=== PATIENT | male | born 1950 | race Caucasian/White ===

== ENCOUNTER → 2017-01-07 | Outpatient (CLI) | payer MEDICARE | END | disposition home or self-care (01) | LOC: CPPFTMAIN 14:23 | PROVIDERS: ATTEND Internal Medicine | DX: J45.909 Unspecified asthma, uncomplicated (principal) | CPT/HCPCS: 94060; 94726; 94729 ==

== ENCOUNTER 2017-03-05 08:47 | Day surgery (SDC) | payer MEDICARE ==
[2017-03-03 11:29] VITALS: BMI 27.2
[~2017-03-05 08:47] MED LIST: LACTATED RINGERS 1,000 ML IV SCH; LIDOCAINE 1% 20 ML VIAL (10MG/ML) FOR IV START INTRADERMA PRN
[2017-03-05 09:32] VITALS: TEMP 97.3
[2017-03-05] MEDS ORDERED: PROPOFOL 10 MG/ML 20 ML VIAL IV ONE (10:18)
[2017-03-05 10:51] VITALS: RESP 18
--- NOTE | 2017-03-05 10:51 | P.PCN ---
Date of Procedure: 03/05/17 Preoperative Diagnosis: Postoperative Diagnosis: Procedure(s) Performed: Procedure: Total colonoscopy. Preoperative diagnosis: Screening for neoplasia, patient has history of polyps. Postoperative diagnosis: Sigmoid diverticulosis with no evidence of acute diverticulitis, strictures, polyps or cancer. Preparation: HalfLytely prep. Sedation: Was provided by anesthesia. Brief clinical history: The patient is a 66-year-old male who is scheduled for this evaluation for screening for neoplasia because of history of polyps. He has no abdominal complaints, bleeding or anemia. His last colonoscopy was in September 2011. Procedure: With the patient on his left lateral decubitus position and after informed consent and adequate sedation, the perianal area was inspected and it did not show any fissures or fistulas. There were no masses felt on digital rectal examination. The Olympus CFQ 160L was then inserted in the rectum in the usual fashion and advanced to the cecum. The preparation was less than than ideal on the right side. The mucosa appeared healthy. No polyps or tumors were seen. Several diverticular orifices were seen scattered in the sigmoid with no evidence of acute diverticulitis or strictures. I retroflexed the endoscope in the rectum before the endoscope was withdrawn. The patient tolerated the procedure well. Plan: The patient was reassured. Discussed dietary measures. With his less than ideal preparation today, I am recommending repeat exam in 3 years. He will follow up with you as planned. Implants: Indications for Procedure: Operative Findings: Description of Procedure:
[2017-03-05 11:05] VITALS: BP 121/80; PULSE 84
== END 2017-03-05 11:46 | disposition home or self-care (01) ==
LOC: ORWHC2ENDO 08:47
DX: Z12.11 Encounter for screening for malignant neoplasm of colon (principal); K57.30 Diverticulosis of large intestine without perforation or abscess without bleeding; Z86.010 Personal history of colon polyps; E78.5 Hyperlipidemia, unspecified; J44.9 Chronic obstructive pulmonary disease, unspecified; Z79.899 Other long term (current) drug therapy; Z91.018 Allergy to other foods; Z91.09 Other allergy status, other than to drugs and biological substances
CPT/HCPCS: J2704; G0121

== ENCOUNTER → 2017-10-20 | Outpatient (CLI) | payer MEDICARE ==
--- NOTE | 2017-10-20 13:54 | MR ---
EXAMINATION TYPE: MR shoulder RT wo con DATE OF EXAM: 10/20/2017 COMPARISON: Plain film 10/02/2017 HISTORY: TECHNIQUE: Multiplanar, multisequence imaging of the right shoulder is performed without contrast. FINDINGS: Rotator Cuff: There is torn supraspinatus tendon with retraction to the level of the acromioclavicula r joint. Increased signal present within the infraspinatus tendon compatible with tendinosis. Acromioclavicular Joint: Hypertrophic change present, acromioclavicular joint arthropathy noted with mass effect in the region of musculotendinous junction of supraspinatus, there is a distal acromial s pur. Glenohumeral Joint: Intact there is some hypertrophic change in the humeral head compatible with oste oarthritic change Labrum: Increased signal present in the superior labrum compatible with possible SLAP lesion Biceps Tendon: The long head of biceps is in normal location within bicipital groove. Fluid signal pr esent along the long head of biceps tendon. Bone marrow signal: No focal abnormal marrow signal is appreciated. Other: There is a joint effusion present. Fluid signal present in the subacromial subdeltoid bursa. F luid signal extends along the region of the subscapularis tendon. IMPRESSION: Rotator cuff tear. Distal acromial spur. Joint effusion. Possible SLAP lesion.
== END | disposition home or self-care (01) ==
LOC: RADMRIMAIN 09:33
PROVIDERS: ATTEND Orthopaedic Surgery
DX: M75.101 Unspecified rotator cuff tear or rupture of right shoulder, not specified as traumatic (principal); M25.711 Osteophyte, right shoulder

== ENCOUNTER 2017-12-15 09:05 | Day surgery (SDC) | payer MEDICARE ==
--- NOTE | 2017-12-06 10:06 | HP ---
HISTORY AND PHYSICAL CHIEF COMPLAINT: Right shoulder pain. HISTORY OF PRESENT ILLNESS: The patient is a 67-year-old, right-hand dominant, retired male who presents with progressive right shoulder pain for the past several months. He is having pain with overhead use and at night despite conservative measures with 2 courses of therapy in addition to medications. PAST MEDICAL HISTORY: Significant for asthma. PAST SURGICAL HISTORY: Negative. CURRENT MEDICATIONS: Advair, atorvastatin and niacin. ALLERGIES: Denies drug allergies. FAMILY HISTORY: Significant for heart disease. SOCIAL HISTORY: Negative for current tobacco or alcohol use. REVIEW OF SYSTEMS: Sixteen point review of systems otherwise reviewed and is noncontributory. PHYSICAL EXAMINATION: On examination, the patient is approximately 5 foot 10, 190 pounds, of mesomorphic habitus. HEENT exam is nonfocal. Neck is supple. On examination of his right shoulder, he is tender about the anterior subacromial space. He has moderate subacromial crepitus. Active range of motion forward elevation 150 degrees, external rotation of the arm side 60 degrees, internal rotation to L3. Motor strength is 5-/5 for abduction and external rotation. Impingement test, Neer, and Speed tests are positive. His distal neurovascular exam otherwise appears to be intact in the right upper extremity. MRI report from 10/20/2017 of the right shoulder shows a supraspinatus tear with some retraction along with a superior labral tear. IMPRESSION: 1. Right shoulder symptomatic rotator cuff tear. 2. Right shoulder symptomatic SLAP lesion. RECOMMENDATIONS: I talked to the patient at length regarding his options. At this point he is having significant symptoms despite conservative measures. After thorough discussion, he opts to proceed with surgery. We will plan to proceed with arthroscopic evaluation with probable subacromial decompression, probable rotator cuff repair and possible biceps tendon release. Risks and benefits were discussed at length in layman's terms. We will likely perform that as an outpatient procedure. MMODL / IJN: [id number] /
[2017-12-11 10:29] VITALS: BMI 27.8
[~2017-12-15 09:05] MED LIST changes: +DEXAMETHASONE SOD PHOSPHATE 10 MG/ML 1 ML VIAL IV ONE; +MIDAZOLAM 2 MG/2 ML VIAL IV PRN; +ONDANSETRON 4 MG/2 ML VIAL IVP ONE; +SCOPOLAMINE 1.5MG/72HR PATCH TRANSDERM ONE; +ceFAZolin IN SWFI 2 GM/20 ML SYRINGE IVP ONE
[2017-12-15] MEDS ORDERED: GLYCOPYRROLATE 0.2 MG/ML 2 ML VIAL ONE (09:06)
[2017-12-15] MEDS ORDERED: PROPOFOL 10 MG/ML 20 ML VIAL IV ONE (09:06)
[2017-12-15] MEDS ORDERED: ROCURONIUM BROMIDE 10 MG/ML 10 ML VIAL IV ONE (09:06)
[2017-12-15] MEDS ORDERED: LIDOCAINE 1% INJ 10MG/ML (20 ML MDV) ONE (09:06)
[2017-12-15] MEDS ORDERED: NEOSTIGMINE 1 MG/ML 10 ML VIAL ONE (09:06)
[2017-12-15] MEDS ORDERED: fentaNYL (PF) 50 MCG/ML 2 ML AMP ONE (09:06)
[2017-12-15] MEDS ORDERED: SUCCINYLCHOLINE CHLORIDE 100 MG/5 ML SYR IV ONE (09:06)
[2017-12-15] MEDS ORDERED: MIDAZOLAM 2 MG/2 ML VIAL ONE (09:06)
[2017-12-15] MEDS ORDERED: PHENYLEPHRINE-0.9% NACL SYG 1 MG/10 ML SYRINGE ONE (09:06)
[2017-12-15] MEDS ORDERED: ceFAZolin IN SWFI 2 GM/20 ML SYRINGE IVP ONE (09:27)
[2017-12-15] MEDS ORDERED: EPINEPHrine (PF) 1 ML in SODIUM CHLORIDE 0.9% IRRIGATIO 3,000 ML IRRIGATION ONE ×6 (09:39)
--- NOTE | 2017-12-15 10:44 | P.OP ---
Date of Procedure: 12/15/17 Preoperative Diagnosis: Symptomatic right rotator cuff tear Postoperative Diagnosis: Same Procedure(s) Performed: Right shoulder arthroscopic subacromial decompression/rotator cuff repair/ biceps tenotomy/superior labral debridement Implants: Arthrex 4.75 mm swivel lock anchor 3, 5.5 mm swivel lock anchor 1 Anesthesia: TIFFANIE Surgeon: [employer] Field Examiner #1: Diogo Brito Estimated Blood Loss (ml): 10 Pathology: none sent Condition: stable Disposition: PACU Indications for Procedure: The patient's a 67-year-old male presents with progressive right shoulder pain despite conservative measures. Clinically and by MRI he was noted of evidence of asymptomatic rotator cuff tear. A discussion of the risks and benefits of continued conservative measures versus operative intervention was made with the patient. He opted to proceed with surgery. Specific risks of surgery to include infection, neurovascular injury, development of blood clots, possible tendon rerupture, possible postoperative stiffness and need for subsequent procedures was discussed. Informed consent was obtained. Operative Findings: As below Description of Procedure: The patient was brought to the operating room, and after induction of general anesthesia was placed into a beachchair position. The bony prominences were appropriately padded. I examined the right shoulder. There was no gross block to passive motion. There was no gross glenohumeral instability. The right upper extremity was prepped and draped in normal fashion. The bony outlines the acromion, distal clavicle, and coracoid process were outlined with a skin marker. The glenohumeral joint was inflated with 50 mL of saline utilizing a spinal needle from a posterior approach. A posterior portal was made through a 5 mm skin incision 1 cm medial and inferior to the posterior lateral borders acromion. A blunt trocar was used to easily into the joint. Diagnostic arthroscopy was performed. An anterior portals made just lateral to the coracoid process entering the joint above the subscapularis tendon. The subscapularis appeared to be intact. The anterior labrum was intact. On inspection of the superior labrum, a type II SLAP lesion was noted. The labrum was debrided back to stable base with a motorized shaver. The biceps was released from the superior labrum with electrocautery and lateral retracted bicipital groove. On inspection the rotator cuff, a tear involving the supraspinatus and a portion in for space was noted with mild retraction. The posterior portion of the cuff appeared to be intact. The arthroscope was then placed into the subacromial space. A lateral portal was made through a 5 mm skin incision 2 cm lateral to the anterior lateral border of the acromion. The soft tissue on the undersurface the acromion was removed with electrocautery and a shaver clearly defining the anterior medial and lateral borders as well as the distal clavicle. The coracoacromial ligament was detached from the anterior acromion with electrocautery. An anterior inferior acromioplasty is performed starting with a motorized sylvia anterolateral, then extending this posteriorly, then extends medially. Is able to convert to a flat acromion. This is verified from the posterior lateral viewing portals. The greater tuberosity was lightly decorticated utilizing a motorized sylvia down to a bleeding bony surface. An accessory superior lateral portal was made just off the lateral edge acromion through a 4 mm skin incision for placement of the anchors. 2 anchors were then placed just off the articular surface with the appropriate starting awl. Good purchase was obtained. The fiber tape was then passed through the rotator cuff with a [employer] suture passer. A lateral row was created crisscrossing the tapes. A 5.5 mm and 4.75 mm swivel lock anchor was placed laterally. The sutures were appropriately tensioned. Final arthroscopic view showed adequate compression of the rotator cuff over the rampart footprint. The arthroscope was then removed. The portals were closed with simple 3-0 nylon suture. A sterile dressing was applied in addition to an abductor brace. The patient was awoken from general anesthesia and transferred to recovery room in good condition. Blood loss was estimated at 10 mL. No complications were incurred. Sponge and needle counts were correct at the end of the case.
[2017-12-15] MEDS: MORPHINE SULFATE 2 MG/ML SYRINGE IV PRN ×5 (10:53→11:23)
[2017-12-15 10:54] VITALS: TEMP 97.4
[2017-12-15] MEDS ORDERED: KETOROLAC 30 MG/ML 1 ML VIAL IVP ONE (11:49)
[2017-12-15] MEDS ORDERED: HYDROcodone/APAP 7.5-325MG 1 EACH TAB PO ONE (11:55)
[2017-12-15 12:16] VITALS: RESP 18
[2017-12-15 13:57] VITALS: BP 163/82; PULSE 104
== END 2017-12-15 11:35 | disposition home or self-care (01) ==
LOC: OR 09:05
PROVIDERS: ATTEND Orthopaedic Surgery
DX: M75.101 Unspecified rotator cuff tear or rupture of right shoulder, not specified as traumatic (principal); S43.431A Superior glenoid labrum lesion of right shoulder, initial encounter; X58.XXXA Exposure to other specified factors, initial encounter; K21.9 Gastro-esophageal reflux disease without esophagitis; J45.909 Unspecified asthma, uncomplicated; Z79.899 Other long term (current) drug therapy
CPT/HCPCS: 29826; 29827; C1713 ×2; C1894; J1100; J2405; J0171; J2270; J0690

== ENCOUNTER 2018-01-18 02:32 | Emergency (ER) | payer MEDICARE ==
[2018-01-18 02:40] VITALS: BP 172/90; PULSE 103; RESP 18; TEMP 97.5
--- NOTE | 2018-01-18 02:50 | ED ---
URI HPI - General Chief Complaint: Upper Respiratory Infection Stated Complaint: cough Time Seen by Provider: 01/18/18 02:41 Source: patient, RN notes reviewed Mode of arrival: ambulatory Limitations: no limitations - History of Present Illness Initial Comments: This is a 67-year-old male who presents to the emergency department with chief complaint of cough. Patient states that on Thursday he was diagnosed with bronchitis. He states a chest x-ray was not obtained at that time. He states he was started on Augmentin. On Thursday he started taking steroids that were prescribed. Patient states that he is having difficulty sleeping because he continues to have a persistent cough. He states that he has been coughing so much that he has developed a headache and has come close to vomiting a couple of times after coughing. He states that he used an at-home nebulizer treatment this evening at 8 PM and then tried to do another treatment 6 hours later but developed a fit of coughing. He denies any fevers or chills, abdominal pain, chest pain, nausea or vomiting, diarrhea or constipation, dysuria or hematuria, dizziness or vision changes. Patient states that he has had bronchitis and/or pneumonia 4-5 times in the last couple of years. - Related Data Home Medications Medication Instructions Recorded Confirmed Atorvastatin [Lipitor] 40 mg PO HS 03/03/17 12/15/17 Finasteride [Proscar] 5 mg PO HS 03/03/17 12/15/17 Fluticasone/Salmeterol [Advair Hfa 2 puff INHALATION BID 03/03/17 12/15/17 230-21 Mcg Inhaler] Niacin 500 mg PO HS 03/03/17 12/15/17 Omeprazole 20 mg PO DAILY PRN 12/11/17 12/15/17 Previous Rx's Medication Instructions Recorded HYDROcodone/APAP 7.5-325MG [[place] 1 each PO Q6HR PRN #30 tab 12/15/17 7.5] Azithromycin 250 mg PO DAILY #4 tab 01/18/18 Allergies Allergy/AdvReac Type Severity Reaction Status Date / Time Milk Containing Products Allergy Cough Verified 01/18/18 02:40 [Dairy] pollen extracts Allergy Cough Verified 01/18/18 02:40 wheat Allergy Cough Verified 01/18/18 02:40 Review of Systems ROS Statement: Those systems with pertinent positive or pertinent negative responses have been documented in the HPI. ROS Other: All systems not noted in ROS Statement are negative. Past Medical History Past Medical History: Asthma, GERD/Reflux, Hyperlipidemia, Sleep Apnea/CPAP/ BIPAP Additional Past Medical History / Comment(s): doesn't use CPAP anymore since surgery History of Any Multi-Drug Resistant Organisms: None Reported Past Surgical History: Orthopedic Surgery, Tonsillectomy Additional Past Surgical History / Comment(s): uvulopalatopharyngoplasty, toe surg., nasal surg. Past Anesthesia/Blood Transfusion Reactions: No Reported Reaction Past Psychological History: No Psychological Hx Reported Smoking Status: Never smoker Past Alcohol Use History: Occasional Past Drug Use History: None Reported - Past Family History Brother(s) Family Medical History: Cancer General Exam - General Exam Comments Initial Comments: General: Awake and alert, well-developed; in no apparent distress. is at bedside. HEENT: Head atraumatic, normocephalic. Pupils are equal, round and reactive to light. Extraocular movements intact. Oropharynx moist without erythema or exudate. Neck: Supple. Normal ROM. Cardiovascular: Regular rate and rhythm. No murmurs, rubs or gallops. Chest symmetrical. Respiratory: Rhonchi noted bilateral lung bases. No wheezes or rales. Normal respiratory effort with no use of accessory muscles. Abdomen: Soft, non-tender, non-distended. No rigidity, rebound or guarding. Normal bowel sounds in all 4 quadrants. Musculoskeletal: Right arm is in a supportive sling. Normal range of motion and no tenderness bilateral lower extremities. Ambulating normally. Skin: [place], warm and dry without rashes or lesions. Neurological: Alert and oriented x3. CN II-XII grossly intact. Speech is fluent and answers are appropriate. No focal neuro deficits. Psychiatric: Normal mood and affect. No overt signs of depression or anxiety noted. Limitations: no limitations Course Vital Signs 01/18/18 02:35 Temperature 97.5 F L Pulse Rate 103 H Respiratory 18 Rate Blood Pressure 172/90 O2 Sat by Pulse 97 Oximetry Medical Decision Making - Medical Decision Making This is a 67-year-old male who presented to the emergency department with chief complaint of cough. Patient states he was diagnosed with bronchitis on Thursday and has been taking Augmentin since then. He states he has taken one dose of prednisone. He states that he is having difficulty sleeping because the cough has been so persistent. Denies any fevers or chills, shortness of breath or chest pain. An chest x-ray was obtained and revealed no acute abnormalities. Case was discussed with attending physician, Dr. Hall. Recommended adding azithromycin or discontinuing Augmentin and starting patient on Levaquin. Options and findings were discussed with patient who wishes to add on azithromycin. First dose was given in the emergency department. Recommended continuing Augmentin and finishing course of antibiotics. He is to also continue taking prednisone as prescribed. Patient's vital signs are stable and he is in no acute distress. He will be discharged home. All questions were answered. Disposition Clinical Impression: Bronchitis Disposition: HOME SELF-CARE Condition: Good Instructions: Acute Bronchitis (ED) Additional Instructions: Please take medications as prescribed. Please follow up with primary care provider within 1-2 days. Return to emergency department if symptoms should worsen or any concerns arise. Prescriptions: Azithromycin 250 mg PO DAILY #4 tab Is patient prescribed a controlled substance at d/c from ED?: No Referrals: Tramaine Bell MD [Primary Care Provider] - 1-2 days Time of Disposition: 03:40
--- NOTE | 2018-01-18 03:10 | XR ---
EXAMINATION TYPE: XR chest 2V DATE OF EXAM: 01/18/2018 COMPARISON: NONE HISTORY: Cough TECHNIQUE: Frontal and lateral views of the chest are obtained. FINDINGS: Heart and mediastinum are normal. Lungs are clear. Diaphragm is normal. Bony thorax appear s normal. IMPRESSION: Normal chest
[2018-01-18] MEDS ORDERED: AZITHROMYCIN 500 MG TAB PO STA (03:23)
== END 2018-01-18 03:31 | disposition home or self-care (01) ==
LOC: EC 02:32
DX: J45.909 Unspecified asthma, uncomplicated (principal); E78.5 Hyperlipidemia, unspecified; Z79.51 Long term (current) use of inhaled steroids; Z79.899 Other long term (current) drug therapy; Z91.011 Allergy to milk products; Z91.018 Allergy to other foods; Z91.09 Other allergy status, other than to drugs and biological substances
CPT/HCPCS: 71046; 99283

== ENCOUNTER → 2018-02-03 | Outpatient (CLI) | payer MEDICARE ==
[2018-02-03 11:32] LABS: Basophils % (A) 0 %; Eosinophils # (A) 0.1 k/uL (0-0.7); Eosinophils % (A) 1 %; HCT 41.2 % (39.0-53.0); HGB 13.5 gm/dL (13.0-17.5); Lymphocytes # (A) 0.8 k/uL (1.0-4.8); Lymphocytes % (A) 11 %; MCHC 32.7 g/dL (31.0-37.0); MCV 94.9 fL (80.0-100.0); Mean Platelet Volume 6.9; Monocytes # (A) 0.3 k/uL (0-1.0); Monocytes % (A) 4 %; Neutrophils # (A) 5.8 k/uL (1.3-7.7); Neutrophils % (A) 83 %; Platelet Count 295 k/uL (150-450); RBC 4.35 m/uL (4.30-5.90); RDW 13.2 % (11.5-15.5)
[2018-02-03 12:34] LABS: Erythrocyte Sedimentation Rate 8 mm/hr (0-15)
== END | disposition home or self-care (01) ==
LOC: LABWHC1 10:29
PROVIDERS: ATTEND Allergy & Immunology
DX: J45.41 Moderate persistent asthma with (acute) exacerbation (principal)
CPT/HCPCS: 36415; 82785; 85025; 85652; 86003; 86140

== ENCOUNTER → 2018-02-10 | Outpatient (CLI) | payer MEDICARE | END | disposition home or self-care (01) | LOC: LABWHC1 17:05 | PROVIDERS: ATTEND Allergy & Immunology | DX: J45.41 Moderate persistent asthma with (acute) exacerbation (principal) | CPT/HCPCS: 36415; 80198 ==

== ENCOUNTER → 2018-02-24 | Outpatient (CLI) | payer MEDICARE ==
--- NOTE | 2018-02-24 08:26 | CT ---
EXAMINATION TYPE: CT chest wo con DATE OF EXAM: 02/24/2018 COMPARISON: 12/19/2015 HISTORY: Bronchiectasis CT DLP: 700.7 mGycm. Automated Exposure Control for Dose Reduction was Utilized. TECHNIQUE: CT scan of the thorax is performed without IV contrast. FINDINGS: LUNGS: Although the lower lobe bronchi appear prominent visually these bronchi do not measure larger than the adjacent pulmonary arteries on both supine and prone imaging and do not meet criteria for br onchiectasis. No peribronchial cuffing is appreciated either. No subpleural reticulation or honeycomb ing is seen. No interlobular septal thickening. 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 No pulmonary mass. No focal pleural thickening. No pulmonary blebs or bulla. No significant e mphysematous change. Right middle lobe pleural parenchymal scarring and lingular pleural parenchymal scarring as well as linear scarring along the interlobar fissure on the left are incidentally noted. The tracheobronchial tree is patent. MEDIASTINUM: Lack of IV contrast is noted to limit evaluation for mediastinal and especially hilar ad enopathy. There are no definitive greater than 1 cm hilar or mediastinal lymph nodes. Moderate thre e-vessel coronary artery calcifications are present. No cardiomegaly or pericardial effusion is seen. OTHER: Incidental note is made of a nonobstructing left upper poler 3 mm calculus within the kidney. IMPRESSION: 1. No CT evidence of bronchiectasis. 2. Benign parenchymal granulomatous changes. 3. No evidence of pulmonary fibrosis or interstitial lung disease. No focal consolidation, pleural ef fusion or pulmonary vascular congestion. 4. Incidentally noted nonobstructing left upper pole 3 mm calculus. 5. Moderate three-vessel coronary artery atheromatous changes, marker of coronary artery disease.
== END | disposition home or self-care (01) ==
LOC: RADCTMAIN 07:52
PROVIDERS: ATTEND Allergy & Immunology
DX: J98.4 Other disorders of lung (principal); I25.10 Atherosclerotic heart disease of native coronary artery without angina pectoris
CPT/HCPCS: 71250

== ENCOUNTER 2018-03-10 08:01 | Emergency (ER) | payer MEDICARE ==
[2018-03-10 08:06] VITALS: TEMP 98
[2018-03-10] MEDS ORDERED: KETOROLAC 30 MG/ML 1 ML VIAL IVP STA (08:16)
[2018-03-10] MEDS ORDERED: MORPHINE SULFATE 2 MG/ML SYRINGE IV STA (08:16)
[2018-03-10] MEDS ORDERED: SODIUM CHLORIDE 0.9% 1,000 ML IV STA ×2 (08:16)
[2018-03-10] MEDS ORDERED: ONDANSETRON 4 MG/2 ML VIAL IVP STA (08:16)
[2018-03-10] MEDS ORDERED: TAMSULOSIN 0.4 MG CAP.ER.24H PO STA (08:19)
--- NOTE | 2018-03-10 08:20 | ED ---
Abdominal Pain HPI - General Chief Complaint: Abdominal Pain Stated Complaint: POSS KIDNEY STONE Time Seen by Provider: 03/10/18 08:11 Source: patient, RN notes reviewed, old records reviewed Mode of arrival: ambulatory Limitations: no limitations - History of Present Illness Initial Comments: This patient's a 59-year-old male presents to the emergency department stay chief complaint of left-sided flank pain sudden onset at 4 AM. He has had history of kidney stones reports that the pain feels similar to past kidney stones. He stated he vomited multiple times today. Patient reports that he has had no recent fever or chills. Normal bowel habits. He reports the pain will radiate from the left flank into the groin. He denies any chest pain or shortness of breath. No diarrhea or bloody stools or bloody emesis. Patient ports that he's had have lithotripsy to have stones removed in the past. He did have a computed tomography scan earlier in this month of his chest. He had an incidental finding with 3 mm left kidney stone. - Related Data Home Medications Medication Instructions Recorded Confirmed Atorvastatin [Lipitor] 40 mg PO HS 03/03/17 12/15/17 Finasteride [Proscar] 5 mg PO HS 03/03/17 12/15/17 Fluticasone/Salmeterol [Advair Hfa 2 puff INHALATION BID 03/03/17 12/15/17 230-21 Mcg Inhaler] Niacin 500 mg PO HS 03/03/17 12/15/17 Omeprazole 20 mg PO DAILY PRN 12/11/17 12/15/17 Previous Rx's Medication Instructions Recorded HYDROcodone/APAP 7.5-325MG [[place] 1 each PO Q6HR PRN #30 tab 12/15/17 7.5] Azithromycin 250 mg PO DAILY #4 tab 01/18/18 HYDROcodone/APAP 5-325MG [[place] 1 tab PO Q4HR PRN 3 Days #15 tab 03/10/18 5-325] Ketorolac [Toradol] 10 mg PO Q6HR #15 tab 03/10/18 Ondansetron Odt [Zofran Odt] 4 mg PO Q8HR PRN #12 tab 03/10/18 Tamsulosin HCl [Flomax] 0.4 mg PO DAILY #10 cap 03/10/18 Allergies Allergy/AdvReac Type Severity Reaction Status Date / Time Milk Containing Products Allergy Cough Verified 03/10/18 08:06 [Dairy] pollen extracts Allergy Cough Verified 03/10/18 08:06 wheat Allergy Cough Verified 03/10/18 08:06 Review of Systems ROS Statement: Those systems with pertinent positive or pertinent negative responses have been documented in the HPI. ROS Other: All systems not noted in ROS Statement are negative. Past Medical History Past Medical History: Asthma, GERD/Reflux, Hyperlipidemia, Sleep Apnea/CPAP/ BIPAP Additional Past Medical History / Comment(s): doesn't use CPAP anymore since surgery, kidney stone. History of Any Multi-Drug Resistant Organisms: None Reported Past Surgical History: Orthopedic Surgery, Tonsillectomy Additional Past Surgical History / Comment(s): uvulopalatopharyngoplasty, toe surg., nasal surg. Past Anesthesia/Blood Transfusion Reactions: No Reported Reaction Past Psychological History: No Psychological Hx Reported Smoking Status: Never smoker Past Alcohol Use History: Occasional Past Drug Use History: None Reported - Past Family History Brother(s) Family Medical History: Cancer General Exam - General Exam Comments Initial Comments: 67-year-old male. Alert and oriented. No significant distress. Limitations: no limitations General appearance: alert, in no apparent distress Head exam: Present: atraumatic, normocephalic, normal inspection Eye exam: Present: normal appearance, PERRL, EOMI. Absent: scleral icterus, conjunctival injection, periorbital swelling ENT exam: Present: normal exam Neck exam: Present: normal inspection. Absent: tenderness, meningismus, lymphadenopathy Respiratory exam: Present: normal lung sounds bilaterally. Absent: respiratory distress, wheezes, rales, rhonchi, stridor Cardiovascular Exam: Present: regular rate, normal rhythm, normal heart sounds. Absent: systolic murmur, diastolic murmur, rubs, gallop, clicks GI/Abdominal exam: Present: soft, tenderness (Left flank, CVA tenderness.), normal bowel sounds. Absent: distended, guarding, rebound, rigid Extremities exam: Present: normal inspection, full ROM, normal capillary refill. Absent: tenderness, pedal edema, joint swelling, calf tenderness Back exam: Present: normal inspection Neurological exam: Present: alert, oriented X3, CN II-XII intact Psychiatric exam: Present: normal affect, normal mood Skin exam: Present: warm, dry, intact, normal color. Absent: rash Course Vital Signs 03/10/18 03/10/18 08:04 12:15 Temperature 98 F Pulse Rate 97 101 H Respiratory 20 18 Rate Blood Pressure 153/80 138/74 O2 Sat by Pulse 100 97 Oximetry Medical Decision Making - Medical Decision Making This is a 67 year old male with CC of sudden left flank pain this morning, concerned for ureter stone.vPatient UA is positive for hematuria. Kidney function and labs are normal. Patient given IV toradol, morphine, and fluids, and flomax. KUB shows 5mm left mid ureteral stone. Discussed with Dr. Aguilar, recommended CT scan. CT shows 4.9 mm left ureter stone with mild hydronephrosis. Discussed this should pass on its own. Urine culture obtained. Given referral for urology. Discussed DC with pain medication, flomax, toradol, and zofran. Return parameters discussed. - Lab Data Result diagrams: 03/10/18 08:30 03/10/18 08:30 Lab Results 03/10/18 03/10/18 03/10/18 Range/Units 08:30 08:30 08:30 WBC 6.4 (3.8-10.6) k/uL RBC 4.60 (4.30-5.90) m/uL Hgb 14.2 (13.0-17.5) gm/dL Hct 42.9 (39.0-53.0) % MCV 93.1 (80.0-100.0) fL MCH 30.8 (25.0-35.0) pg MCHC 33.1 (31.0-37.0) g/dL RDW 13.2 (11.5-15.5) % Plt Count 274 (150-450) k/uL Neutrophils % 60 % Lymphocytes % 26 % Monocytes % 6 % Eosinophils % 5 % Basophils % 0 % Neutrophils # 3.9 (1.3-7.7) k/uL Lymphocytes # 1.7 (1.0-4.8) k/uL Monocytes # 0.4 (0-1.0) k/uL Eosinophils # 0.3 (0-0.7) k/uL Basophils # 0.0 (0-0.2) k/uL PT 9.6 (9.0-12.0) sec INR 1.0 (<1.2) APTT 21.6 L (22.0-30.0) sec Sodium 141 (137-145) mmol/L Potassium 4.5 (3.5-5.1) mmol/L Chloride 106 (98-107) mmol/L Carbon Dioxide 24 (22-30) mmol/L Anion Gap 11 mmol/L BUN 17 (9-20) mg/dL Creatinine 1.10 (0.66-1.25) mg/dL Est GFR (CKD-EPI)AfAm 79 (>60 ml/min/1.73 sqM) Est GFR (CKD-EPI)NonAf 69 (>60 ml/min/1.73 sqM) Glucose 113 H (74-99) mg/dL Calcium 9.6 (8.4-10.2) mg/dL Total Bilirubin 0.5 (0.2-1.3) mg/dL AST 26 (17-59) U/L ALT 40 (21-72) U/L Alkaline Phosphatase 69 (38-126) U/L Total Protein 6.3 (6.3-8.2) g/dL Albumin 4.1 (3.5-5.0) g/dL Amylase 56 (30-110) U/L Lipase 139 (23-300) U/L Urine Color Urine Appearance (Clear) Urine pH (5.0-8.0) Ur Specific [place] (1.001-1.035) Urine Protein (Negative) Urine Glucose (UA) (Negative) Urine Ketones (Negative) Urine Blood (Negative) Urine Nitrite (Negative) Urine Bilirubin (Negative) Urine Urobilinogen (<2.0) mg/dL Ur Leukocyte Esterase (Negative) Urine RBC (0-5) /hpf Urine WBC (0-5) /hpf Urine Bacteria (None) /hpf Urine Mucus (None) /hpf 03/10/18 Range/Units 10:15 WBC (3.8-10.6) k/uL RBC (4.30-5.90) m/uL Hgb (13.0-17.5) gm/dL Hct (39.0-53.0) % MCV (80.0-100.0) fL MCH (25.0-35.0) pg MCHC (31.0-37.0) g/dL RDW (11.5-15.5) % Plt Count (150-450) k/uL Neutrophils % % Lymphocytes % % Monocytes % % Eosinophils % % Basophils % % Neutrophils # (1.3-7.7) k/uL Lymphocytes # (1.0-4.8) k/uL Monocytes # (0-1.0) k/uL Eosinophils # (0-0.7) k/uL Basophils # (0-0.2) k/uL PT (9.0-12.0) sec INR (<1.2) APTT (22.0-30.0) sec Sodium (137-145) mmol/L Potassium (3.5-5.1) mmol/L Chloride (98-107) mmol/L Carbon Dioxide (22-30) mmol/L Anion Gap mmol/L BUN (9-20) mg/dL Creatinine (0.66-1.25) mg/dL Est GFR (CKD-EPI)AfAm (>60 ml/min/1.73 sqM) Est GFR (CKD-EPI)NonAf (>60 ml/min/1.73 sqM) Glucose (74-99) mg/dL Calcium (8.4-10.2) mg/dL Total Bilirubin (0.2-1.3) mg/dL AST (17-59) U/L ALT (21-72) U/L Alkaline Phosphatase (38-126) U/L Total Protein (6.3-8.2) g/dL Albumin (3.5-5.0) g/dL Amylase (30-110) U/L Lipase (23-300) U/L Urine Color Yellow Urine Appearance Cloudy (Clear) Urine pH 6.0 (5.0-8.0) Ur Specific [place] 1.018 (1.001-1.035) Urine Protein Trace H (Negative) Urine Glucose (UA) Negative (Negative) Urine Ketones Negative (Negative) Urine Blood Large H (Negative) Urine Nitrite Negative (Negative) Urine Bilirubin Negative (Negative) Urine Urobilinogen <2.0 (<2.0) mg/dL Ur Leukocyte Esterase Negative (Negative) Urine RBC >182 H (0-5) /hpf Urine WBC 2 (0-5) /hpf Urine Bacteria Rare H (None) /hpf Urine Mucus Rare H (None) /hpf - Radiology Data Radiology results: report reviewed Bilateral nephrolithiasis with moderate left hydronephrosis secondary to 4.9mm proximal left ureteral calculus. Disc protrusion L4-L5 with canal stenosis. Subsegmental changes at right lung base more typical of atelectasis than infiltrate, Chronic underlining interstitial lung disease and bronchiectasis suggested. KUB shows left mid ureteral stone, measuring 5mm. Disposition Clinical Impression: Left ureteral stone Disposition: HOME SELF-CARE Condition: Good Instructions: Ureteral Stones (ED) Additional Instructions: Patient is advised to take medication as prescribed. Follow-up with urology. Given the 4.9 mm stone. Should pass on its own without medication and hydration. Return to the emergency department if any alarming signs or symptoms occur. Prescriptions: HYDROcodone/APAP 5-325MG [[place] 5-325] 1 tab PO Q4HR PRN 3 Days #15 tab PRN Reason: Pain Ketorolac [Toradol] 10 mg PO Q6HR #15 tab Ondansetron Odt [Zofran Odt] 4 mg PO Q8HR PRN #12 tab PRN Reason: Nausea Tamsulosin HCl [Flomax] 0.4 mg PO DAILY #10 cap Is patient prescribed a controlled substance at d/c from ED?: Yes When asked, does pt state using other controlled substances?: No If prescribed controlled substance>3 days was MAPS reviewed?: Yes If opioid is for acute pain is fill amount 7 days or less?: Yes If Rx opioid, was Start Talking consent form obtained?: No Referrals: Tramaine Bell MD [Primary Care Provider] - 1-2 days Time of Disposition: 11:40
[2018-03-10 08:59] LABS: Basophils % (A) 0 %; Eosinophils # (A) 0.3 k/uL (0-0.7); Eosinophils % (A) 5 %; HCT 42.9 % (39.0-53.0); HGB 14.2 gm/dL (13.0-17.5); Lymphocytes # (A) 1.7 k/uL (1.0-4.8); Lymphocytes % (A) 26 %; MCH 30.8 pg (25.0-35.0); MCHC 33.1 g/dL (31.0-37.0); MCV 93.1 fL (80.0-100.0); Mean Platelet Volume 7.3; Monocytes # (A) 0.4 k/uL (0-1.0); Monocytes % (A) 6 %; Neutrophils # (A) 3.9 k/uL (1.3-7.7); Neutrophils % (A) 60 %; Platelet Count 274 k/uL (150-450); RDW 13.2 % (11.5-15.5); WBC 6.4 k/uL (3.8-10.6)
[2018-03-10 09:11] LABS: Albumin 4.1 g/dL (3.5-5.0); Calcium 9.6 mg/dL (8.4-10.2); Potassium 4.5 mmol/L (3.5-5.1); Total Bilirubin 0.5 mg/dL (0.2-1.3); Total Protein 6.3 g/dL (6.3-8.2)
[2018-03-10 09:16] LABS: Prothrombin Time 9.6 sec (9.0-12.0)
[2018-03-10 09:20] LABS: Partial Thromboplastin Time 21.6 sec (22.0-30.0)
--- NOTE | 2018-03-10 09:24 | XR ---
EXAMINATION TYPE: XR KUB DATE OF EXAM: 03/10/2018 CLINICAL DATA: 67-year-old male with abdominal pain, [facility] COMPARISON: 09/25/2015 FINDINGS: Supine imaging limited for assessment of free intraperitoneal air. Nonobstructive bowel gas pattern. Scattered mild to moderate stool. There is a new 5 mm calcification left paramedian mid abdomen lower and more medial than expected for the left kidney. The previous left-sided renal calculi are no longer seen. 5 mm right mid abdominal calculus likely within the kidney. IMPRESSION: 1. If there is left-sided renal colic, findings suggest a 5 mm left midureteral calculus. 2. Additional 5 mm right mid abdominal calcification probably located within the kidney.
[2018-03-10 11:01] LABS: Appearance,Urine Cloudy (Clear); Bacteria,Urine Rare /hpf; Bilirubin,Urine Negative (Negative); Blood,Urine Large (Negative); Color,Urine Yellow; Glucose,Urine (UA) Negative (Negative); Ketones,Urine Negative (Negative); Leukocyte Esterase,Urine Negative (Negative); Mucus,Urine Rare /hpf; Nitrite,Urine Negative (Negative); Protein,Urine Trace (Negative); RBC,Urine >182 /hpf (0-5); Specific Gravity,Urine 1.018 (1.001-1.035); Urobilinogen,Urine <2.0 mg/dL (<2.0); WBC,Urine 2 /hpf (0-5)
--- NOTE | 2018-03-10 11:35 | CT ---
EXAMINATION TYPE: CT abdomen pelvis wo con DATE OF EXAM: 03/10/2018 COMPARISON: NONE HISTORY: Lt flank pain CT DLP: 1029 mGycm Automated exposure control for dose reduction was used. TECHNIQUE: Helical acquisition of images was performed from the lung bases through the pelvis. FINDINGS: LUNG BASES: Subsegmental changes at the lung bases are most typical atelectasis or scar. Basilar bron chiectasis suggested. The heart is enlarged.. LIVER/GB: No significant abnormality is appreciated. PANCREAS: No significant abnormality is seen. SPLEEN: Small accessory spleen is noted superiorly and posteromedially. ADRENALS: No significant abnormality is seen. KIDNEYS: Right kidney there are 4 calcifications within the right kidney. All measure less than 5 mm. No hydro nephrosis. Left kidney: There are approximately 10 calcifications within the left kidney all measuring less than 5 mm. There is moderate left hydronephrosis with perinephric edema secondary to a proximal ureteral stone measuring 4.9 mm in diameter. Periureteral edema seen proximal. URINARY BLADDER: Bladder is incompletely distended and limited ADENOPATHY: None visualized. OSSEOUS STRUCTURES: Hypertrophic changes of the spine including the facets noted. Disc bulging L4-L5 results in canal stenosis. Herniation or protrusion not excluded. BOWEL: Diverticulosis of the colon noted. Extensive retained fecal debris limits assessment bowel. L ack of contrast also contributes. OTHER: Prostate gland appears enlarged with calcifications. There is a 3.2 cm soft tissue lipoma bindu cent to the left hip. No free fluid or free air. Aorta of normal caliber. There is a small hiatal her sandeep. A tiny amount of free fluid in the pelvis. IMPRESSION: 1. Bilateral nephrolithiasis with moderate left hydronephrosis secondary to a 4.9 mm proximal left ur eteral calculus. 2. Disc protrusion L4-L5 with suspected canal stenosis. 3. Subsegmental changes at the right lung base more typical of atelectasis than infiltrate. Chronic u nderlying interstitial lung disease and bronchiectasis suggested.
[2018-03-10] MEDS ORDERED: MORPHINE SULFATE 2 MG/ML SYRINGE IVP STA (11:44)
[2018-03-10 12:21] VITALS: BP 138/74; PULSE 101; RESP 18
== END 2018-03-10 12:15 | disposition home or self-care (01) ==
LOC: EC 08:01
DX: N13.2 Hydronephrosis with renal and ureteral calculous obstruction (principal); M51.26 Other intervertebral disc displacement, lumbar region; M48.061 Spinal stenosis, lumbar region without neurogenic claudication; R91.8 Other nonspecific abnormal finding of lung field; E78.5 Hyperlipidemia, unspecified; J45.909 Unspecified asthma, uncomplicated; Z79.51 Long term (current) use of inhaled steroids; Z79.899 Other long term (current) drug therapy; Z91.011 Allergy to milk products; Z91.018 Allergy to other foods; Z91.048 Other nonmedicinal substance allergy status; Z98.890 Other specified postprocedural states
CPT/HCPCS: 36415; 80053; 82150; 83690; 85025; 85610; 85730; 81001; 87086; 74018; 74176; 99285; 96374; 96375 ×2; 96376; 96361 ×4; J2405; J1885; J2270

== ENCOUNTER → 2018-05-04 | Outpatient (CLI) | payer MEDICARE ==
--- NOTE | 2018-05-04 11:02 | XR ---
EXAMINATION TYPE: XR KUB DATE OF EXAM: 05/04/2018 COMPARISON: 03/10/2018 HISTORY: Abdominal pain TECHNIQUE: One view abdominal series FINDINGS: The osseous structures are intact. The bowel gas pattern is nonspecific. There appear to be 3 calcifications overlying the right kidney the largest measuring 6 mm suggestive of renal calculi. Suspect that there is a 2 mm mid pole left renal calculus. Degenerative and hypertrophic change of the spine. Calcifications in the pelvis are stable possibly r elated to the prostate gland. Calcification previously noted adjacent to the L3-L4 disc interspace on the left is not seen with certainty and today's exam. IMPRESSION: 1. Bilateral nephrolithiasis as measured above. Note is made that the calculus seen at the level the mid left ureter between the L3 and L4 disc interspace on the left is not seen on today's exam. Calcif ications in the pelvis are stable relative the previous exam and most likely in the basis of prostate calcifications..
== END | disposition home or self-care (01) ==
LOC: RADXRMAIN 10:45
PROVIDERS: ATTEND Urology
DX: N20.0 Calculus of kidney (principal); N28.89 Other specified disorders of kidney and ureter
CPT/HCPCS: 74018

== ENCOUNTER → 2018-08-02 | Outpatient (CLI) | payer MEDICARE ==
[2018-08-02 10:19] LABS: Basophils % (A) 1 %; Eosinophils # (A) 0.5 k/uL (0-0.7); Eosinophils % (A) 9 %; HCT 43.4 % (39.0-53.0); HGB 14.5 gm/dL (13.0-17.5); Lymphocytes # (A) 1.5 k/uL (1.0-4.8); Lymphocytes % (A) 27 %; MCH 31.4 pg (25.0-35.0); MCHC 33.3 g/dL (31.0-37.0); MCV 94.2 fL (80.0-100.0); Monocytes # (A) 0.3 k/uL (0-1.0); Monocytes % (A) 6 %; Neutrophils % (A) 54 %; Platelet Count 250 k/uL (150-450); RBC 4.61 m/uL (4.30-5.90); RDW 13.1 % (11.5-15.5); WBC 5.5 k/uL (3.8-10.6)
[2018-08-02 10:45] LABS: Anion Gap 6 mmol/L; Blood Urea Nitrogen 14 mg/dL (9-20); Carbon Dioxide 29 mmol/L (22-30); Chloride 107 mmol/L (98-107); Potassium 4.8 mmol/L (3.5-5.1); Sodium 142 mmol/L (137-145)
[2018-08-02 11:02] LABS: Appearance,Urine Clear (Clear); Bilirubin,Urine Negative (Negative); Blood,Urine Negative (Negative); Color,Urine Colorless; Glucose,Urine (UA) Negative (Negative); Ketones,Urine Negative (Negative); Leukocyte Esterase,Urine Negative (Negative); Nitrite,Urine Negative (Negative); Protein,Urine Negative (Negative); Specific Gravity,Urine 1.004 (1.001-1.035); Urobilinogen,Urine <2.0 mg/dL (<2.0)
== END | disposition home or self-care (01) ==
LOC: LABPAT 09:32
PROVIDERS: ATTEND Urology
DX: Z01.812 Encounter for preprocedural laboratory examination (principal); N20.0 Calculus of kidney
CPT/HCPCS: 36415; 80051; 81003; 82565; 84520; 85025

== ENCOUNTER 2018-08-09 09:13 | Day surgery (SDC) | payer MEDICARE ==
[2018-08-03 16:25] VITALS: BMI 26.5
--- NOTE | 2018-08-08 19:14 | P.GSHP ---
History of Present Illness H&P Date: 08/08/18 68 yo male with painful right renal stone who comes for eswl rt The risks and complications have been discussed. - Respiratory Comment: asthma,hay fever - Genitourinary (Male) Genitourinary: Reports as per HPI Past Medical History Past Medical History: Asthma, GERD/Reflux, Hyperlipidemia, Sleep Apnea/CPAP/ BIPAP Additional Past Medical History / Comment(s): doesn't use CPAP anymore since surgery, kidney stone. History of Any Multi-Drug Resistant Organisms: None Reported Past Surgical History: Orthopedic Surgery, Tonsillectomy Additional Past Surgical History / Comment(s): uvulopalatopharyngoplasty, toe surg., nasal surg. Past Anesthesia/Blood Transfusion Reactions: No Reported Reaction Smoking Status: Never smoker - Past Family History Brother(s) Family Medical History: Cancer Medications and Allergies Home Medications Medication Instructions Recorded Confirmed Type Atorvastatin [Lipitor] 40 mg PO HS 03/03/17 08/03/18 History Finasteride [Proscar] 5 mg PO HS 03/03/17 08/03/18 History Fluticasone/Salmeterol [Advair Hfa 2 puff INHALATION BID 03/03/17 08/03/18 History 230-21 Mcg Inhaler] Niacin 500 mg PO HS 03/03/17 08/03/18 History Omeprazole 20 mg PO DAILY PRN 12/11/17 08/03/18 History Tamsulosin HCl [Flomax] 0.4 mg PO DAILY #10 cap 03/10/18 08/03/18 Rx Aspirin 81 mg PO HS 08/03/18 08/03/18 History Theophylline Anhydrous 400 mg PO DAILY 08/03/18 08/03/18 History [Theophylline] Ubidecarenone [Co Q-10] 100 mg PO DAILY 08/03/18 08/03/18 History guaiFENesin [Mucinex] 1,200 mg PO DAILY 08/03/18 08/03/18 History Acetaminophen Tab [Tylenol Tab] 650 mg PO Q6H PRN 08/04/18 08/04/18 History Allergies Allergy/AdvReac Type Severity Reaction Status Date / Time Milk Containing Products Allergy Cough Verified 08/03/18 16:17 [Dairy] pollen extracts Allergy Cough Verified 08/03/18 16:17 wheat Allergy Cough Verified 08/03/18 16:17 Surgical - Exam - General well developed, well nourished, no distress - Eyes PERRL - ENT no hearing loss - Neck trachea midline - Respiratory normal expansion, normal respiratory effort - Cardiovascular Rhythm: regular - Abdomen Abdomen: soft, non tender - Genitourinary normal penis with no external lesions, testicles present - Integumentary no rash, no growths - Neurologic normal coordination, normal sensation - Musculoskeletal normal gait, normal posture - Psychiatric oriented to time, oriented to person, oriented to place, speech is normal, memory intact Assessment and Plan Assessment: Impression: right renal stones Plan: eswl right
--- NOTE | 2018-08-09 09:48 | XR ---
Abdomen HISTORY: Kidney stones Frontal view of the abdomen submitted and correlated to prior abdomen dated 05/04/2018, CT abdomen pel vis 03/10/2018 Large amount of retained fecal debris is present which could possibly obscure detail. Calcifications are present at the level of the prostate gland. There calcification superimposed over the lower pole and upper pole the right kidney measuring approximately 4 mm. Phlebolith present in the right hemipel vis is again noted. Punctate left-sided renal calcifications are not as well seen. Previous identifie d proximal left ureteral calculus is not seen. Vascular calcifications are present. IMPRESSION: Right-sided nephrolithiasis and additional findings above.
[2018-08-09 10:06] VITALS: TEMP 97.5
[2018-08-09] MEDS: LACTATED RINGERS 1,000 ML IV SCH ×2 (10:07→11:14)
[2018-08-09] MEDS ORDERED: LIDOCAINE 1% 20 ML VIAL (10MG/ML) FOR IV START INTRADERMA ONE (10:07)
[2018-08-09] MEDS ORDERED: KETAMINE 10 MG/ML 20 ML VIAL ONE (11:16)
[2018-08-09] MEDS ORDERED: fentaNYL (PF) 50 MCG/ML 2 ML AMP ONE (11:16)
[2018-08-09] MEDS ORDERED: MIDAZOLAM 2 MG/2 ML VIAL ONE (11:16)
[2018-08-09] MEDS ORDERED: PROPOFOL 10 MG/ML 20 ML VIAL IV ONE (11:16)
[2018-08-09] MEDS ORDERED: LIDOCAINE 1% INJ 10MG/ML (20 ML MDV) ONE (11:16)
--- NOTE | 2018-08-09 11:47 | P.OP ---
Date of Procedure: 08/09/18 Preoperative Diagnosis: Right renal stones Postoperative Diagnosis: Same Procedure(s) Performed: Extracorporeal shockwave lithotripsy right 1300 shocks at energy level IV Anesthesia: MAC Surgeon: Saturnino Brewer Pathology: none sent Condition: stable Disposition: PACU Indications for Procedure: The patient is 68. He previously had a ureteral stone removed. He has what looks like 3 stones in his right kidney and comes for shockwave lithotripsy Description of Procedure: Patient brought operating suite he is given a sedative anesthetic on the table. He has a tremendous amount of bowel gas overlying the right kidney. To the 3 stones are easily identified. 600 shocks were given to the upper pole stone 700 shocks to the lower pole stone that both break nicely. Then the procedure I looked throughout the kidney and see no remaining stones. Patient awake and returned recovery in good condition. He tolerated procedure well be discharged home upon recovery and found the office in one week with a KUB.
[2018-08-09 12:31] VITALS: RESP 18
[2018-08-09 13:00] VITALS: BP 139/84; PULSE 79
== END 2018-08-09 13:47 | disposition home or self-care (01) ==
LOC: ORWHC2ENDO 09:13
PROVIDERS: ATTEND Urology
DX: N20.0 Calculus of kidney (principal); J45.909 Unspecified asthma, uncomplicated; K21.9 Gastro-esophageal reflux disease without esophagitis; E78.5 Hyperlipidemia, unspecified; N40.0 Benign prostatic hyperplasia without lower urinary tract symptoms; Z79.82 Long term (current) use of aspirin; Z79.899 Other long term (current) drug therapy; Z79.51 Long term (current) use of inhaled steroids; Z91.011 Allergy to milk products; Z91.018 Allergy to other foods; Z87.442 Personal history of urinary calculi
CPT/HCPCS: 74018; 50590; J2250; J2001; J3010; J2704

== ENCOUNTER → 2018-08-17 | Outpatient (CLI) | payer MEDICARE ==
--- NOTE | 2018-08-17 09:05 | XR ---
EXAMINATION TYPE: XR KUB DATE OF EXAM: 08/17/2018 COMPARISON: NONE HISTORY: Pain TECHNIQUE: One view abdominal series FINDINGS: The osseous structures are intact. The bowel gas pattern is nonspecific. Large amount retained fecal debris throughout the colon. This does obscure renal outlines. Hypertrophic change of the spine.. IMPRESSION: 1. Nonspecific abdomen. Extensive retained fecal debris correlate for constipation. This overlaps th e renal outlines with no definitive calcification seen on today's exam.
== END | disposition home or self-care (01) ==
LOC: RADXRMAIN 08:30
PROVIDERS: ATTEND Urology
DX: N20.0 Calculus of kidney (principal); Z98.890 Other specified postprocedural states
CPT/HCPCS: 74018

== ENCOUNTER → 2018-10-22 | Outpatient (CLI) | payer MEDICARE | END | disposition home or self-care (01) | LOC: LABWHC1 16:15 | PROVIDERS: ATTEND Allergy & Immunology | DX: J45.40 Moderate persistent asthma, uncomplicated (principal) | CPT/HCPCS: 36415; 80198 ==

== ENCOUNTER → 2019-09-08 | Outpatient (CLI) | payer MEDICARE | END | disposition home or self-care (01) | LOC: LABWHC1 16:44 | PROVIDERS: ATTEND Allergy & Immunology | DX: J45.41 Moderate persistent asthma with (acute) exacerbation (principal) | CPT/HCPCS: 36415; 80198 ==

== ENCOUNTER → 2020-08-08 | Outpatient (CLI) | payer MEDICARE | END | disposition home or self-care (01) | LOC: LABWHC1 11:18 | PROVIDERS: ATTEND Allergy & Immunology | DX: J45.41 Moderate persistent asthma with (acute) exacerbation (principal); R00.0 Tachycardia, unspecified | CPT/HCPCS: 36415; 80198 ==

== ENCOUNTER 2021-09-25 09:08 | Day surgery (SDC) | payer MEDICARE ==
[2021-09-20 09:48] VITALS: BMI 26.5
[2021-09-25 09:25] VITALS: TEMP 97.7
[2021-09-25] MEDS ORDERED: LACTATED RINGERS 1,000 ML IV ONE (09:27)
[2021-09-25] MEDS ORDERED: LIDOCAINE 1% INJ 10MG/ML (20 ML MDV) ONE (10:01)
[2021-09-25] MEDS ORDERED: PROPOFOL 10 MG/ML 20 ML VIAL IV ONE (10:01)
--- NOTE | 2021-09-25 10:32 | P.PCN ---
Date of Procedure: 09/25/21 Procedure(s) Performed: BRIEF HISTORY: Patient is a 71-year-old pleasant white male scheduled for an elective colonoscopy as a part of prior history of colon polyps. PROCEDURE PERFORMED: Colonoscopy with snare polypectomy. PREOPERATIVE DIAGNOSIS: History of colon polyps. IV sedation per Anesthesia. PROCEDURE: After informed consent was obtained, the patient, was brought into the endoscopy unit. IV sedation was administered by Anesthesia under continuous monitoring. Digital rectal examination was normal. Initially the Olympus CF-160 flexible video colonoscope was then inserted in the rectum, gradually advanced into the cecum without any difficulty. Careful examination was performed as the scope was gradually being withdrawn. Ileocecal valve and the appendiceal orifice were visualized and appeared normal. Prep was excellent. The serum the cecum there was a 1 cm polyp that was removed by snare polypectomy. Mucosa of the cecum, ascending colon, transverse colon, descending colon, sigmoid colon, and rectum appeared normal. Retroflexion was performed in the rectum and no lesions were seen. The patient tolerated the procedure well. IMPRESSION: 1 cm cecal polyp status post polypectomy Rest of the colon appeared normal RECOMMENDATIONS: Findings of this examination were discussed with the patient as well as his family. He was advised to follow with the biopsy results. If the biopsy results adenoma he can have a repeat colonoscopy in 3 years..
[2021-09-25 10:53] VITALS: BP 133/78; PULSE 96; RESP 16
== END 2021-09-25 11:06 | disposition home or self-care (01) ==
LOC: ORWHC2ENDO 09:08
PROVIDERS: ATTEND Internal Medicine Gastroenterology
DX: Z12.11 Encounter for screening for malignant neoplasm of colon (principal); D12.0 Benign neoplasm of cecum; Z86.010 Personal history of colon polyps; E78.5 Hyperlipidemia, unspecified; J45.909 Unspecified asthma, uncomplicated; K21.9 Gastro-esophageal reflux disease without esophagitis; Z79.82 Long term (current) use of aspirin; Z79.51 Long term (current) use of inhaled steroids; Z79.899 Other long term (current) drug therapy; Z91.09 Other allergy status, other than to drugs and biological substances
CPT/HCPCS: 88305; 45385; J2001; J2704

== ENCOUNTER → 2022-09-24 | Outpatient (CLI) | payer MEDICARE | END | disposition home or self-care (01) | LOC: LABWHC1 14:42 | PROVIDERS: ATTEND Allergy & Immunology | DX: J45.40 Moderate persistent asthma, uncomplicated (principal) | CPT/HCPCS: 36415; 80198 ==

== ENCOUNTER → 2024-08-09 | Outpatient (CLI) | payer MEDICARE | LOC: CPPFTMAIN 09:21 | PROVIDERS: ATTEND Family Medicine | DX: J45.20 Mild intermittent asthma, uncomplicated (principal); Z91.011 Allergy to milk products; Z91.018 Allergy to other foods; Z91.048 Other nonmedicinal substance allergy status | CPT/HCPCS: 94060; 94726; 94729 ==